=== PATIENT | female | born 1975 | race Caucasian/White ===

== ENCOUNTER 2017-01-22 12:58 | Emergency (ER) | payer MEDICAID ==
[~2017-01-22 12:58] MED LIST: NORCO1 TA2 PO
[2017-01-22 16:47] LABS: BASOPHIL % 0.4 % (0-2); PLATELET COUNT 377 x10^3mcL (130-400)
[2017-01-22 16:50] LABS: RED CELL DISTRIBUTION WIDTH 17.9 % (11.5-14.5)
[2017-01-22 17:09] LABS: CALCIUM 8.9 mg/dL (8.5-10.1); CARBON DIOXIDE 28.9 mmol/L (21-32); CHLORIDE SERUM 106 mmol/L (98-107); CREATININE SERUM 0.5 mg/dL (0.6-1.0); GFR1 > 60 mL/min; GLUCOSE SERUM 79 mg/dL (74-106); POTASSIUM SERUM 3.8 mmol/L (3.5-5.1); SODIUM SERUM 142 mmol/L (136-145)
[2017-01-22 17:13] LABS: ALBUMIN 3.4 g/dL (3.4-5.0); ALKALINE PHOSPHATASE 83 U/L (46-116); ALT/SGPT 32 U/L (14-59); AST/SGOT 21 U/L (15-37); BILIRUBIN TOTAL 0.3 mg/dL (0.20-1.00); TOTAL PROTEIN, SERUM 7.2 g/dL (6.4-8.2)
[2017-01-22 18:26] VITALS: BP 117/72
== END 2017-01-22 18:26 | disposition home or self-care (01) ==
LOC: ED 12:58
PROVIDERS: Emergency Medicine
DX: N83.202 Unspecified ovarian cyst, left side (principal); R03.0 Elevated blood-pressure reading, without diagnosis of hypertension
CPT/HCPCS: 36415; J1885

== ENCOUNTER 2017-05-16 08:35 | Emergency (ER) | payer MEDICAID ==
[~2017-05-16] VITALS: Ht 152.4 cm; Wt 68.5 kg
[2017-05-16 08:49] VITALS: BP 125/77
== END 2017-05-16 09:50 | disposition home or self-care (01) ==
LOC: ED 08:35
DX: M53.3 Sacrococcygeal disorders, not elsewhere classified (principal); Z90.49 Acquired absence of other specified parts of digestive tract

== ENCOUNTER 2018-05-05 18:23 | Emergency (ER) | payer OTHER ==
[~2018-05-05] VITALS: Ht 152.4 cm; Wt 67.1 kg
[2018-05-05 21:32] VITALS: BP 134/88
== END 2018-05-05 21:32 | disposition home or self-care (01) ==
LOC: ED 18:23
DX: S16.1XXA Strain of muscle, fascia and tendon at neck level, initial encounter (principal); R51 Headache; V89.2XXA Person injured in unspecified motor-vehicle accident, traffic, initial encounter; Y93.89 Activity, other specified; Y92.411 Interstate highway as the place of occurrence of the external cause; Y99.8 Other external cause status

== ENCOUNTER 2018-06-30 10:01 | Emergency (ER) | payer OTHER ==
[~2018-06-30] VITALS: Ht 154.9 cm; Wt 68.0 kg
[2018-06-30 10:06] VITALS: Ht 154.9 cm; Wt 68.0 kg
[2018-06-30 12:30] VITALS: BP 135/86
== END 2018-06-30 12:28 | disposition home or self-care (01) ==
LOC: ED 10:01
DX: R51 Headache (principal); Z90.49 Acquired absence of other specified parts of digestive tract
CPT/HCPCS: J1100; J2765; J7030

== ENCOUNTER 2018-11-02 15:59 | Emergency (ER) | payer BC, OTHER ==
[~2018-11-02] VITALS: Ht 152.4 cm; Wt 67.6 kg
[2018-11-02 16:13] VITALS: Ht 152.4 cm; Wt 67.6 kg
[2018-11-02 19:02] VITALS: BP 133/75
== END 2018-11-02 19:02 | disposition home or self-care (01) ==
LOC: ED 15:59
DX: J06.9 Acute upper respiratory infection, unspecified (principal); Z90.49 Acquired absence of other specified parts of digestive tract; J45.909 Unspecified asthma, uncomplicated
CPT/HCPCS: Q0092